=== PATIENT | female | born 1965 | race African-American/Black ===

== ENCOUNTER 2017-02-08 15:12 | Outpatient (CLI) | payer OTHER ==
--- NOTE | 2017-02-09 08:41 | Mammography Report ---
BILATERAL DIGITAL SCREENING MAMMOGRAM with CAD: 02/08/17 15:12:00 CLINICAL: Routine screening. COMPARISON:09/26/13 FINDINGS: The breasts are mostly fatty. Right upper outer parenchymal asymmetry is smaller and less dense than on the prior exam. No mass, architectural distortion or suspicious calcifications. IMPRESSION: No mammographic evidence of malignancy. BI-RADS CATEGORY: 2 -- Benign RECOMMENDATION: Routine mammographic screening in one year. COMMENT: Patient follow-up letters are generated by our [employer] application.
== END 2017-02-08 15:13 | disposition home or self-care (01) ==
LOC: SPVWC 15:12
PROVIDERS: ATTEND Obstetrics & Gynecology
DX: Z12.31 Encounter for screening mammogram for malignant neoplasm of breast (principal)
CPT/HCPCS: 77067; G0202

== ENCOUNTER 2019-03-26 16:10 | Outpatient (CLI) | payer OTHER ==
--- NOTE | 2019-03-27 12:03 | Mammography Report ---
DIGITAL SCREENING MAMMOGRAM WITH CAD, 03/26/2019 INDICATION: Routine screening mammography. TECHNIQUE: Digital bilateral 2D mammography was obtained in the craniocaudal and mediolateral obliq ue projections. This examination was interpreted with the benefit of Computer-Aided Detection analysi s. COMPARISON: 02/08/2017 FINDINGS: Breast Density: There are scattered areas of fibroglandular density. There is no evidence of dominant mass, suspicious calcifications or architectural distortion in eithe r breast. IMPRESSION: No mammographic evidence of malignancy. Follow up recommendation: Routine yearly BI-RADS Category 1: Negative. A "normal" or negative report should not discourage follow up or biopsy of a clinically significant f inding. A written summary of these findings will be mailed to the patient. The patient will be entered into a mammography reporting system which will generate a reminder letter for the patient's next appointmen t at the appropriate interval. The [employer] recommends yearly mammograms starting at age 40 and continuing as l paola as a woman is in good health. Breast MRI is recommended for women with an approximate 20-25% or greater lifetime risk of breast cancer, including women with a strong family history of breast or ova tanya cancer or who have been treated for Hodgkin's disease. Signer Name: Tod Mccall MD Signed: 03/27/2019 11:58 AM Workstation Name: [id number]
== END 2019-03-26 16:11 | disposition home or self-care (01) ==
LOC: SPVWC 16:10
PROVIDERS: ATTEND Obstetrics & Gynecology
DX: Z12.31 Encounter for screening mammogram for malignant neoplasm of breast (principal)
CPT/HCPCS: 77067